=== PATIENT | female | born 1980 | race Caucasian/White ===

== ENCOUNTER 2017-12-27 06:00 | Inpatient (IN) ==
[2017-12-27] MEDS ORDERED: CeFAZolin Premix DUPLEX 2,000 MG/50 ML BAG IVPB ONE (06:30)
[2017-12-27] MEDS ORDERED: Ringers Solution, Lactated 1,000 ML IVC SCH (06:30)
[2017-12-27] MEDS ORDERED: Metoclopramide 10 MG/2 ML VIAL IVP ONE (06:30)
[2017-12-27] MEDS ORDERED: Famotidine 20 MG/2 ML VIAL IVP ONE (06:30)
[2017-12-27 07:03] LABS: Basophils % 0.3 %; Eosinophils # 0.1 K/mcL (0.0-0.6); Eosinophils % 0.5 %; Hematocrit 35.8 % (35.3-44.9); Hemoglobin 11.2 g/dL (11.5-15.4); Immature Granulocytes % 4.2 % (0-4); Lymphocytes # 1.5 K/mcL (0.6-4.6); Lymphocytes % 12.8 %; Mean Corpuscular HGB Conc 31.3 g/dL (31.6-35.5); Mean Corpuscular Hemoglobin 26.8 pg (28.0-33.3); Mean Corpuscular Volume 85.6 fL (83.0-100.0); Mean Platelet Volume 9.5 fL (9.4-12.4); Monocytes # 0.8 K/mcL (0.0-1.3); Monocytes % 7.2 %; Neutrophils # 8.6 K/mcL (1.6-8.9); Platelet Count 271 K/mcL (140-400); Red Blood Count 4.18 M/mcL (3.82-4.97); Red Cell Distribution Width 23.2 % (11.5-14.5)
[2017-12-27] MEDS ORDERED: *HR* FentaNYL (PF) 100 MCG/2 ML VIAL ONE (07:17)
[2017-12-27] MEDS ORDERED: Morphine Sulfate/PF 5mg/10mL Vial ONE (07:17)
[2017-12-27 07:25] LABS: Amphetamine Screen,Urine Negative ng/mL (Cutoff=1000); Barbiturate Screen,Urine Negative ng/mL (Cutoff=200); Benzodiazepines Screen,Urine Negative ng/mL (Cutoff=200); Cannabinoid Screen,Urine Negative ng/mL (Cutoff = 50); Cocaine Screen,Urine Negative ng/mL (Cutoff= 300); Opiate Screen,Urine Negative ng/mL (Cutoff=300); Phencyclidine Screen,Urine Negative ng/mL (Cutoff=25)
--- NOTE | 2017-12-27 07:27 | History & Physical Report ---
Date of Encounter: 12/27/17 Time of Encounter: 07:25 24 Hour HP Update - Instructions Instructions: If the History and Physical is less than 30 days old and was completed prior to A.M. admission and or procedure and has NOT been updated on calendar day of procedure please complete this update prior to performing procedure. - Update Patient reports changes in Medical Condition: No Changes in examination, assessment, or condition: No Changes in Medication: No Preop tests/diagnostics Reviewed: Yes Surgery Remains Indicated: Yes Consent for Planned Operative Procedure(s) Verified: Yes - Pre-Operative Checklist Preoperative Checklist Indicated: Yes Prophylactic Antibiotic Ordered: Yes Home Medications Include Beta Jose Luis: Yes Beta Jose Luis Taken Today (Day of Surgery): No Beta Jose Luis Taken Yesterday (Day Prior to Surgery): Yes Is VTE Prophylaxis Indicated?: Yes
--- NOTE | 2017-12-27 07:46 | Anesthesia Evaluation PreOp ---
Date of Encounter: 12/27/17 Time of Encounter: 07:43 - Past History Planned Operation: repeat C/S BPS Cardiac History: HTN Pulmonary History: Denies Any Significant HX Other Medical History: GERD, Other (IBS) Anesthesia History: No Prior Anesthetic Complications, Past Anesthesia (csx2, eyex2, t&a) : Yes Test: Positive Alcohol Use: none Drug use: none, marijuana Medications and Allergies Atenolol [Tenormin] 10 mg PO BID 10/27/17 [History] Cholecalciferol (Vitamin D3) [Vitamin D3] 3,000 unit PO DAILY 10/27/17 [History] Ezetimibe [Zetia] 25 mg PO DAILY 10/27/17 [History] Pedi Mv No.79/Ferrous Fumarate [Flintstones with Iron Tab Chew] 18 mg PO DAILY 10/27/17 [History] Vitamin E (Dl,Tocopheryl Acet) [Vitamin E] 1,000 unit PO DAILY 10/27/17 [History ] 3 Allergy/AdvReac Type Severity Reaction Status Date / Time No Known Allergies Allergy Verified 10/27/17 14:50 - Meds/Allergy Pre-op Review Medications Reviewed: Yes Allergies Reviewed: Yes Beta Blockers on Current Med List: Yes If Beta Blockers taken, Date/Time (Last Dose taken): 12/26 1499 Anesthesia Results - Labs 12/27/17 06:49 Anesthesia Exam 149/81 78 16 fht 144 Height: 5'3" Weight: 82 NPO (# of Hours): 8 Pain Scale: 1 Pain Scale Used: Numeric (1 - 10) - HEENT Pupil (Motor): Pupils equal Mallampati: II Teeth: Normal Oral Opening: Greater than 3 - FLYER BUILDER LOC: Oriented FLYER BUILDER Motor: Normal RUE, Normal LUE, Normal RLE, Normal LLE, Normal Face FLYER BUILDER Sensory: Normal: RUE, LUE, RLE, LLE, Face - Cardiac Rhythm: Regular Murmur: None - Pulmonary Breath Sounds: bilateral Clear Respiratory Effort: Symmetrical Anesthesia Assess/Plan ASA Score: 2 Modified [place] Scale for Level of Consciousness: Cooperative, oriented, and tranquil Anesthetic Plan: Regional Autologous Blood: No Monitoring Plan: Standard Monitors Recovery Plan: PACU (risks discussed, questions answered, consented)
--- NOTE | 2017-12-27 08:23 | Anesthesia Procedures ---
Date of Encounter: 12/27/17 Time of Encounter: 08:20 Procedures: Anesthesia - Epidural/Spinal Patient ID/Chart reviewed: Yes Patient examined: Yes OB Eval: Gestational age: 39 OB Eval: : 3 OB Eval: Hx Para: 2 OB Eval: Dilated at (cm): 2 OB Eval: Contractions: Non-stressed pattern Consent Obtained: Yes Supplemental Oxygen: Nasal Cannula Supplemental Oxygen Rate (L/min): 4 Site Prep: Aseptic Technique, Sterile prep and drape, 0.5% Chlorhexidine/Alcohol Patient position: upright Local Anesthetic: Lidocaine 1% Amount of Local Anesthetic used: 3 Interspace Used: L2-L3 Blood: No CSF: Yes Paresthesia: No Spinal Needle Gauge: 25 Spinal Dose: marcaine 12mg, duramorph 0.25, fentanyl 10 mcg Procedure: aseptic, thompson well, effective Vitals + FHT's: 148/88 96 16 fht 144
[2017-12-27] MEDS ORDERED: *HR* FentaNYL (PF) 100 MCG/2 ML VIAL IVP PRN (08:38)
[2017-12-27] MEDS ORDERED: Ondansetron 4 MG/2 ML VIAL IVP PRN (08:38)
[2017-12-27] MEDS ORDERED: *HR* OxyCODONE Immed Rel 5 MG TABLET PO PRN (08:38)
[2017-12-27] MEDS ORDERED: Ondansetron 4 MG/2 ML VIAL ONE (08:55)
[2017-12-27] MEDS ORDERED: *HR* Meperidine 25 MG/ML SYRINGE IVP PRN (09:26)
--- NOTE | 2017-12-27 09:26 | Operative Note ---
Date of procedure: 12/27/17 Pre-op diagnosis: Term intrauterine , previous section, request for permane Post-op diagnosis: same Procedure: Repeat low transverse section with bilateral partial salpingectomy Complications: None Anesthesia: spinal Surgeon: Rosina Marley Was there an ex assistant/program director present: No Estimated blood loss (cc): 400 Specimen: Distal segments of bilateral fallopian tubes Condition: stable Disposition: other (Labor and delivery recovery room) Procedure in Detail: Patient was taken the operating and placed in a supine position with left uterine displacement following the administration of a spinal anesthetic. Skin was then prepped and draped in usual sterile fashion. A timeout procedure was performed. A Pfannenstiel incision was performed through the previous surgical scar and extended down through the fascial layer until the abdominal cavity was entered. A bladder flap was then carefully created with sharp dissection. The lower uterine segment was noted to be extremely thin. A low transverse uterine incision was performed and extended bilaterally with bandage scissors. The membranes were then ruptured with clear fluid present. A viable female was delivered from a vertex left occiput anterior position with scores of 8 and 9 at one and 5 minutes respectively, and the weighed 6 lbs. 2 oz. The cord was clamped and cut and the was handed to the nursery team. A sample of cord blood was obtained, and the placenta was manually removed. The uterine cavity was wiped clean with wet lap sponge. The uterine incision was closed in a layered fashion with 0 Vicryl suture in a running locking fashion. Good hemostasis was present. I again asked the patient if she desired to proceed with the sterilization and she agreed. The left fallopian tube was first identified, grasped and traced distally until the fimbriated end was seen. The distal portion of the tube was then isolated and doubly ligated with 0 plain suture. This isolated segment including the fallopian tube was then removed. Good hemostasis was present. Procedure was then repeated in a similar fashion for the right fallopian tube. The paracolic gutters were then gently wiped clean with a wet lap sponge. The pelvis was again inspected with good hemostasis noted. The fascial layer was closed with 0 PDS Stratafix suture in a running nonlocking fashion. Subcutaneous layer was irrigated with sterile water and good hemostasis noted. The subcutaneous layer was closed with 0 chromic suture in a running nonlocking fashion. 4-0 Vicryl suture was then used to close the superficial subcutaneous layer continuing to close the skin edges in a running subcuticular fashion. A piece of Dermabond mesh was then placed over the incision site. Patient followed procedure well, all sponge needle and his were counts reported as correct. This may blood loss was 400 mL and the urine in Benavides catheter was clear and yellow. She was taken recovery room in stable condition.
[2017-12-27] MEDS ORDERED: Oxytocin 20 units/ LR 1000 mL 20 UNIT/1,000 ML BAG IVC ONE (09:38)
[2017-12-27] MEDS ORDERED: Metoclopramide 10 MG/2 ML VIAL IVP PRN (12:18)
[2017-12-27] MEDS ORDERED: Sennosides 8.6 MG TABLET PO PRN (12:18)
[2017-12-27] MEDS ORDERED: Oxytocin 20 units/ LR 1000 mL 20 UNIT/1,000 ML BAG IVC SCH (12:18)
[2017-12-27] MEDS ORDERED: Rho Immune Globulin 1,500 UNIT SYRINGE IM ONE (12:18)
[2017-12-27] MEDS: Ibuprofen 600 MG TABLET PO PRN ×2 (12:46→20:07)
[2017-12-27] MEDS: Simethicone 80 MG TAB.CHEW PO PRN (20:07)
[2017-12-28] MEDS: *HR* OxyCODONE/APAP 5/325 TABLET PO PRN ×4 (04:11→19:47)
[2017-12-28] MEDS: Ibuprofen 600 MG TABLET PO PRN ×4 (04:11→22:12)
[2017-12-28 04:39] LABS: Basophils % 0.4 %; Eosinophils # 0.1 K/mcL (0.0-0.6); Eosinophils % 0.9 %; Hematocrit 31.2 % (35.3-44.9); Immature Granulocytes % 1.8 % (0-4); Lymphocytes # 1.2 K/mcL (0.6-4.6); Lymphocytes % 11.6 %; Mean Corpuscular HGB Conc 32.1 g/dL (31.6-35.5); Mean Corpuscular Hemoglobin 27.2 pg (28.0-33.3); Mean Platelet Volume 9.6 fL (9.4-12.4); Monocytes # 0.7 K/mcL (0.0-1.3); Monocytes % 7.1 %; Platelet Count 224 K/mcL (140-400); Red Blood Count 3.67 M/mcL (3.82-4.97); Red Cell Distribution Width 23.1 % (11.5-14.5); Segmented Neutrophils % 78.2 %
[2017-12-28 05:06] LABS: Anisocytosis 2+ (Not Present); Platelet Estimate Normal (Normal); Polychromasia 1+ (Not Present)
[2017-12-28] MEDS ORDERED: (Ezetimibe [Zetia] 10 MG) PO SCH (09:00)
[2017-12-28] MEDS: Prenatal Vit/FA 1 EACH TABLET PO SCH (09:50)
--- NOTE | 2017-12-28 10:07 | OB/GYN Progress Note ---
Date of Encounter: 12/28/17 Time of Encounter: 10:03 - Assessment and Plan (1) Status post section Current Visit: Yes Status: Acute Stable POD #1 Continue current management Anticipate discharge tomorrow. (2) anemia Current Visit: Yes Status: Acute Continue on iron Subjective - Subjective Interval history: Stable POD #1 up in chair, voiding, pain well managed Patient reports: voiding normally, ambulating normally [place]: doing well Objective - Vital Signs Latest vital signs: Vital Signs Temp Pulse Resp BP Pulse Ox 12/28/17 07:47 16 12/28/17 07:30 98.1 F 78 16 113/73 97 12/28/17 04:10 98.1 F 77 14 107/64 97 12/28/17 00:20 98 F 74 14 102/71 97 12/27/17 19:45 98.2 F 81 16 136/89 98 12/27/17 16:40 97.9 F 78 16 124/81 97 12/27/17 14:45 97.9 F 63 16 120/73 12/27/17 13:45 98 F 98 16 125/79 12/27/17 12:45 75 16 127/75 12/27/17 12:15 97.8 F 83 16 121/76 100 12/27/17 11:45 98.7 F 81 16 130/69 Intake and Output 12/27/17 12/28/17 12/28/17 23:59 07:59 15:59 Intake Total 400 / 400 550 / 550 Output Total 150 / 150 1300 / 1300 300 / 300 Balance 250 / 250 -750 / -750 -300 / -300 Intake: Oral 400 / 400 550 / 550 Output: Urine 150 / 150 300 / 300 Catheter 1300 / 1300 Other: Stool Characteristics Normal for Patient Weight 79.605 kg Patient Weight 12/28/17 23:59 Weight 79.605 kg - Exam Lungs: bilateral: normal Chest: Normal S1, Normal S2 Extremities: Present: normal Abdomen: Present: soft Incision: Present: intact, dressed (dermabond dressing) Uterus: Present: firm (U-1) - Labs Labs: Laboratory Results - last 24 hr 12/27/17 12/28/17 09:49 04:01 WBC 10.2 RBC 3.67 L Hgb 10.0 L Hct 31.2 L MCV 85.0 MCH 27.2 L MCHC 32.1 RDW 23.1 H Plt Count 224 MPV 9.6 Immature Gran % 1.8 Seg Neutrophils % 78.2 Lymphocytes % 11.6 Monocytes % 7.1 Eosinophils % 0.9 Basophils % 0.4 Neutrophils # 8.0 Lymphocytes # 1.2 Monocytes # 0.7 Eosinophils # 0.1 Basophils # 0.0 Platelet Estimate Normal Polychromasia 1+ A Anisocytosis 2+ A Baby's Blood Type O RH NEGATIVE Mother's Blood Type O RH NEGATIVE Rhogam Indicated NO
[2017-12-28] MEDS: Simethicone 80 MG TAB.CHEW PO PRN (19:46)
[2017-12-29] MEDS: Ibuprofen 600 MG TABLET PO PRN (04:26)
--- NOTE | 2017-12-29 08:35 | Discharge Summary ---
Date of Encounter: 12/29/17 Time of Encounter: 08:33 - Discharge Diagnosis (1) Status post tubal ligation Priority: Secondary Status: Acute Comments: continue routine postop care (2) anemia Priority: Secondary Status: Acute Comments: continue ferrous sulfate daily (3) Status post section Priority: Primary Status: Acute Comments: continue routine postop/ care discharge home today follow up with Dr. Marley in 2 weeks for incision check - Discharge Medications Prescriptions: OxyCODONE/APAP 5/325 [Percocet 5/325 MG] 1 each PO Q4HR PRN 5 Days #30 tablet PRN Reason: Moderate pain 4-6 Ibuprofen [Motrin] 600 mg PO Q6HR PRN #60 tablet PRN Reason: Cramping Docusate [Colace] 100 mg PO BID #30 capsule Ferrous Sulfate 325 mg PO DAILY #30 tablet Home Medications: Atenolol [Tenormin] 10 mg PO BID 10/27/17 [History] Cholecalciferol (Vitamin D3) [Vitamin D3] 3,000 unit PO DAILY 10/27/17 [History] Ezetimibe [Zetia] 25 mg PO DAILY 10/27/17 [History] Vitamin E (Dl,Tocopheryl Acet) [Vitamin E] 1,000 unit PO DAILY 10/27/17 [History ] Docusate [Colace] 100 mg PO BID #30 capsule 12/29/17 [Rx] Ferrous Sulfate 325 mg PO DAILY #30 tablet 12/29/17 [Rx] Ibuprofen [Motrin] 600 mg PO Q6HR PRN #60 tablet 12/29/17 [Rx] OxyCODONE/APAP 5/325 [Percocet 5/325 MG] 1 each PO Q4HR PRN 5 Days #30 tablet [Rx] Vit/FA 1 each PO DAILY tablet 12/29/17 [Rx] Simethicone [Gas-X] 80 mg PO TID PRN tab.chew 12/29/17 [Rx] Allergies/Adverse Reactions: 3 Allergy/AdvReac Type Severity Reaction Status Date / Time No Known Allergies Allergy Verified 10/27/17 14:50 Data Procedures and tests throughout hospitalization: Laboratory Tests 12/27/17 12/27/17 12/27/17 06:49 06:49 09:49 WBC 11.5 H RBC 4.18 Hgb 11.2 L Hct 35.8 MCV 85.6 MCH 26.8 L MCHC 31.3 L RDW 23.2 H Plt Count 271 MPV 9.5 Immature Gran % 4.2 H Seg Neutrophils % 75.0 Lymphocytes % 12.8 Monocytes % 7.2 Eosinophils % 0.5 Basophils % 0.3 Neutrophils # 8.6 Lymphocytes # 1.5 Monocytes # 0.8 Eosinophils # 0.1 Basophils # 0.0 Platelet Estimate Polychromasia Anisocytosis Urine Opiates Screen Negative Ur Barbiturates Screen Negative Ur Phencyclidine Scrn Negative Ur Amphetamines Screen Negative U Benzodiazepines Scrn Negative Urine Cocaine Screen Negative U Marijuana (THC) Screen Negative Ur Drug Screen Interp See Below Baby's Blood Type O RH NEGATIVE Mother's Blood Type O RH NEGATIVE Rhogam Indicated NO 12/28/17 04:01 WBC 10.2 RBC 3.67 L Hgb 10.0 L Hct 31.2 L MCV 85.0 MCH 27.2 L MCHC 32.1 RDW 23.1 H Plt Count 224 MPV 9.6 Immature Gran % 1.8 Seg Neutrophils % 78.2 Lymphocytes % 11.6 Monocytes % 7.1 Eosinophils % 0.9 Basophils % 0.4 Neutrophils # 8.0 Lymphocytes # 1.2 Monocytes # 0.7 Eosinophils # 0.1 Basophils # 0.0 Platelet Estimate Normal Polychromasia 1+ A Anisocytosis 2+ A Urine Opiates Screen Ur Barbiturates Screen Ur Phencyclidine Scrn Ur Amphetamines Screen U Benzodiazepines Scrn Urine Cocaine Screen U Marijuana (THC) Screen Ur Drug Screen Interp Baby's Blood Type Mother's Blood Type Rhogam Indicated Labs on day of discharge: Labs from last 24 hours 12/27/17 09:49 Baby's Blood Type O RH NEGATIVE Mother's Blood Type O RH NEGATIVE Rhogam Indicated NO Date of admission: 12/27/17 06:00 Primary care physician: PCP NONE Discharging clinician: Shannan Coronel Anticipated date of discharge: 12/29/17 - Patient Status Disposition: Home, Self-Care Condition: Good Functional capacity at discharge: independent ambulation - Discharge Instructions Follow Up With: NONE,PCP [Primary Care Provider] - Rosina Marley DO [Partnered Physician] - - Diet and Activity Activity: increase activity as tolerated Diet: regular diet Hospital Course Procedures: [facility] report reviewed by Roseanna Coronel CNM Reason for admission: section Delivery: section Episiotomy: none Laceration: none complications: none Discharge diagnosis: IUP at term delivered [place] baby: female (bottle feeding) Time Attestation: Total time spent providing and/or coordinating discharge services: Time Spent: Less than 30 minutes - VTE Documentation of Mechanical Device: Intermittent pneumatic compression device Exam - Constitutional Vitals: Temp Pulse Resp BP Pulse Ox 98.4 F 80 16 105/68 97 12/28/17 20:55 12/28/17 20:55 12/28/17 20:55 12/28/17 20:55 12/28/17 20:55 General appearance IM: A&O X 3, pleasant, answers questions appropriately - GI/Abdominal GI/Abdominal exam IM: normal bowel sounds Incision: normal, dry, intact - Uterine Tone: Firm Uterus Position: 1 Finger Below Umbilicus, Midline - Extremities Exam Extremities exam IM: Present: full ROM, normal capillary refill, normal inspection - Neurological Exam Neurological exam: alert, oriented X3, reflexes normal
[2017-12-29 09:34] VITALS: BP 121/78
[2017-12-29] MEDS: *HR* OxyCODONE/APAP 5/325 TABLET PO PRN (09:43)
[2017-12-29] MEDS: Prenatal Vit/FA 1 EACH TABLET PO SCH (09:43)
== END 2017-12-29 13:00 | disposition home or self-care (01) | DRG 766 ==
LOC: 1NENULAB 06:00 → 1NENUOBS 11:55